=== PATIENT | male | born 1995 ===

== ENCOUNTER → 2023-09-26 12:47 | Outpatient (BNVA) | payer SELFPAY | PROVIDERS: PCP Nurse Practitioner Family; Visit Provider Physician Assistant Medical | DX: Z02.79 Encounter for issue of other medical certificate (principal) ==

== ENCOUNTER 2023-10-14 16:17 | Outpatient (AMB) | payer OTHER, SELFPAY ==
--- NOTE | 2023-10-14 16:19 | A.OFFPC_ITS ---
Vital Signs 10/14/23 16:20 Height 5 ft 9 in Weight 149 lb 4 oz BMI 22.0 BP 102/64 Blood Pressure Location Rt brachial Position Sitting Respiration 14 Pulse 77 Pulse Source Pulse Oximeter Temp 97.4 F Temp Source Temporal Artery Scan Pulse Oximetry (%) 97 Oxygen Delivery Method Room Air Intake Visit Reasons: hives on neck/arms Intake Note: would like referral to deburrer strip to get allergy test done. 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 Accompanied by: Self / Same As Patient Allergies No Known Allergies Allergy (Verified 10/14/23 16:26) Tobacco use date assessed: 10/14/23 Dental Screening Dental Screen Date: 10/14/23 Did you have a dental visit in the last 12 months?: No Did you have a dental problem in the last 6 months where you did not have access to dental care?: No Was dental information given to patient?: Patient has dentist [facility] Medical History (Updated 10/14/23 @ 16:30 by TAMARA Alexis) No pertinent past medical history Surgical History (Updated 10/14/23 @ 16:30 by TAMARA Alexis) No pertinent past surgical history Family History Mother Rheumatoid arthritis Fibromyalgia Maternal Grandfather Cancer Paternal Grandmother Schizophrenia Other Mental health disorder Social History Housing: Condominium Patient Tobacco Use Status: Former Tobacco user e-Cigarette/Vaping Use: Currently Using service: No Current occupational status: unemployed Cognitive needs: No Hearing needs: No Vision needs: Yes Physical exam (Primary Care) Vital Signs: Last Vital Signs Temp 97.4 F 10/14/23 16:20 Pulse 77 10/14/23 16:20 Resp 14 10/14/23 16:20 BP 102/64 10/14/23 16:20 Pulse Ox 97 10/14/23 16:20 Oxygen Delivery Method Room Air 10/14/23 16:20 BMI result Body Mass Index 22.0 Tobacco/Smoking Status: Tobacco use Status Tobacco use date assessed 10/14/23 10/14/23 16:33 Patient Tobacco Use Status Former Tobacco user 10/14/23 16:33 e-Cigarette/Vaping Use Currently Using 10/14/23 16:33 Coding
[2023-10-14 16:20] VITALS: BP 102/64; PULSE 77; RESP 14; TEMP 36.3; O2SAT 97; BMI 22.0
--- NOTE | 2023-10-14 16:35 | MHC.OFFWIV ---
Intake Vital Signs 10/14/23 16:20 Height 5 ft 9 in Weight 149 lb 4 oz BMI 22.0 BP 102/64 Blood Pressure Location Rt brachial Position Sitting Respiration 14 Pulse 77 Pulse Source Pulse Oximeter Temp 97.4 F Temp Source Temporal Artery Scan Pulse Oximetry (%) 97 Oxygen Delivery Method Room Air Intake Visit Reasons: hives on neck/arms Allergies No Known Allergies Allergy (Verified 10/14/23 16:38) Medication List - Last Reconciled 10/14/23 by Shania Mtz CNP cetirizine 10 mg PO DAILY HPI HPI Comments History of Present Illness Details 28-year-old male presents complaints of hives on the right side of his neck and upper back. 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 His symptoms completed has subsided after he quit the job about 2 weeks ago. He thinks the hives were associated to his work place. No current signs and symptoms. [facility] Medical History (Updated 10/14/23 @ 16:50 by Shania Mtz CNP) No pertinent past medical history Surgical History (Updated 10/14/23 @ 16:30 by TAMARA Alexis) No pertinent past surgical history Family History Mother Rheumatoid arthritis Fibromyalgia Maternal Grandfather Cancer Paternal Grandmother Schizophrenia Other Mental health disorder Review of Systems Const Details: Const Denies chills, Denies fatigue, Denies fever(s), Denies headache(s) and Denies weakness ENT Denies dizziness and Denies headache(s) Card Denies chest pain, Denies lightheadedness, Denies dyspnea and Denies other (Palpitations) Resp Denies cough, Denies dyspnea, Denies wheezing and Denies other ( shortness of breath) GI Denies abdominal pain, Denies melena, Denies hematochezia, Denies change in bowel habits, Denies dyspepsia and Denies nausea Denies hematuria and Denies dysuria Musc Denies abnormal gait, Denies myalgias, Denies arthralgias, Denies numbness and Denies tingling Skin/Breast Denies rash, Denies unusual bruising and Denies wounds Neuro Denies abnormal gait, Denies dizziness, Denies headache(s), Denies memory loss, Denies numbness, Denies Sensory deficit (Neuro), Denies tingling and Denies weakness Psych Denies anxiety, Denies depression, Denies memory loss Endo Denies cold intolerance, Denies fatigue, Denies heat intolerance, Denies polydipsia and Denies polyuria Aller/Immun Denies wheezing Physical Exam Vital Signs: Last Vital Signs Temp 97.4 F 10/14/23 16:20 Pulse 77 10/14/23 16:20 Resp 14 10/14/23 16:20 BP 102/64 10/14/23 16:20 Pulse Ox 97 10/14/23 16:20 Oxygen Delivery Method Room Air 10/14/23 16:20 BMI result Body Mass Index 22.0 Const Other: Const General: well developed; No acute distress Nutritional Appearance: well nourished Orientation/consciousness: patient oriented x3 HEENT Head: Yes normocephalic and Yes atraumatic Eyes General: appearance normal, both eyes and all related structures Pupils: Equal, round and reactive pupils present EOM: EOMs intact bilaterally Resp Effort & Inspection: normal respiratory effort Auscultation: clear to auscultation bilaterally Cardio Rate: regular rate Rhythm: regular rhythm Heart sounds: S1 normal heart sound present, S2 normal heart sound present, no gallops, no murmurs and no rubs Bruits: no abdominal aortic bruits and no carotid bruits Neuro General: patient oriented x3 and gait normal, no focal neuro deficit Cranial nerves: Yes Equal, round and reactive pupils present Psych Affect: normal affect Assessment & Plan Assessment & Plan (1) History of urticaria: Code(s): Z87.2 - Personal history of diseases of the skin and subcutaneous tissue Plan: Likely contact No acute signs or symptoms Instructed on treatment and prevention for hives, including avoiding allergens Encouraged to establish with a PCP to address his health care needs Follow-up with symptoms or concerns Verbalized understanding and agreed with treatment plan Coding Level of Care Code New Pt Level 3 (44961) Diagnoses History of urticaria Z87.2
== END 2023-10-14 16:57 | disposition home or self-care (01) ==
PROVIDERS: PCP Nurse Practitioner Family; Visit Provider Nurse Practitioner Family
DX: Z87.2 Personal history of diseases of the skin and subcutaneous tissue (principal)
CPT/HCPCS: 99203

== ENCOUNTER 2024-01-31 10:02 | Outpatient (AMB) | payer OTHER, SELFPAY ==
--- NOTE | 2024-01-31 10:15 | MHC.PC.OV ---
Vital Signs 01/31/24 10:32 Height 5 ft 9 in Weight 152 lb BMI 22.4 BP 90/62 Blood Pressure Location Rt brachial Position Sitting Respiration 16 Pulse 60 Pulse Source Pulse Oximeter Temp 97.9 F Temp Source Oral Pulse Oximetry (%) 96 Oxygen Delivery Method Room Air Intake Visit Reasons: PE Intake Note: patient here for new patient vist. 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 Relocated to [facility] in 2019 Last office visit/CPE: About 12 years Acute issue(s): Astigmatism -Corrected by prescription glasses He notes that he generally eats healthy and sleeps well. He also does routine physical exercise but not recently PMHx: No significant past medical history SurgHx: None FHx: Mom: Alcohol abuse, fibromyalgia, RA, RAMIREZ. MGF: Alcohol abuse, colon cancer, RAMIREZ. MGM: Schizophrenia. Dad: Alcohol abuse. PGM: Schizophrenia SocHx: Former smoker; quit a few months ago; smoked 2-3 cigarettes on/off for 15 years. Has been vaping nicotine daily since he quit smoking cigarette; Consumes edible cannabis occasionally [facility] . He will call to schedule his next eye exam Last tetanus vaccine was over 10 years ago [facility] Medical History (Updated 01/31/24 @ 11:25 by Shania Mtz CNP) Arthritis Allergic sinusitis No pertinent past medical history Surgical History (Updated 10/14/23 @ 16:30 by TAMARA Alexis) No pertinent past surgical history Family History (Updated 01/31/24 @ 10:52 by Melissa Lucero) Mother Rheumatoid arthritis Fibromyalgia Alcohol abuse Substance abuse Maternal Grandfather Cancer Alcohol abuse Substance abuse Asthma Colon cancer Paternal Grandmother Schizophrenia Father Alcohol abuse High blood pressure Maternal Grandmother Alcohol abuse High blood pressure Family/Other Asthma Sister BPD (bronchopulmonary dysplasia) Other Mental health disorder Social History Housing: [facility] Patient Tobacco Use Status: Former Tobacco user Cigarette Packs Per Day: 0 Cigarettes Per Day: 3 Years Smoked: on and off for 10 years e-Cigarette/Vaping Use: Currently Using Second Hand Smoke Exposure: No service: No Current occupational status: employed Current occupation: office services specialist Current occupational exposures/hazards: No Cognitive needs: No Hearing needs: No Vision needs: Yes Questionnaire PHQ-9 Over the last 2 weeks, how often have you been bothered by any of the following problems? 1. Little interest or pleasure in doing things: not at all 2. Feeling down, depressed, or hopeless: several days 3. Trouble falling or staying asleep, or sleeping too much: several days 4. Feeling tired or having little energy: several days 5. Poor appetite or overeating: several days 6. Feeling bad about yourself - or that you are a failure or have let yourself or your family down: not at all 7. Trouble concentrating on things, such as reading the newspaper or watching television: not at all 8. Moving or speaking so slowly that other people could have noticed. Or the opposite - being so fidgety or restless that you have been moving around a lot more than usual: not at all 9. Thoughts that you would be better off or of hurting yourself in some way: not at all Total score: 4 Depression Screening Interpretation: Negative Depression Screening Done: Yes 80010 - PHQ-9 Billing: Yes Source: Developed by Drs. Sergey Ross, Patrizia Bob, Josue Ritter and colleagues, with an educational ulysses from [employer]. Thrive Questionnaire Date Thrive assessed: 01/31/24 What is your living situation today?: I have a steady place to live Within the past 12 months, did the food you bought not last and you didn't have the money to get more?: Never true Within the past 12 months, did you worry whether your food would run out before you got money to buy more?: Never true Do you have trouble paying for medicines?: No Do you have trouble getting transportation to medical appointments?: No Do you have trouble taking care of your child, family member or friend?: No Do you have trouble with day-to-day activities such as bathing, preparing meals, shopping, managing finances, etc.?: No Are you currently unemployed and looking for a job?: No Are you interested in more education?: Yes Please select the resources that you would like help with: Education Currently or been in a relationship where the following occur: No concerns reported THRIVE Score: 0 AUDIT C Alcohol Use Questionnaire (AUDIT-C) 1. How often do you have a drink containing alcohol?: Monthly or less 2. How many drinks containing alcohol do you have on a typical day when you are drinking?: 1 or 2 3. How often do you have six or more drinks on one occasion?: Never Total Score: 1 Score Reviewed/Action Taken: Yes MARLON-7 AMB Questionnaire MARLON-7 Date MARLON - 7 assessed: 01/31/24 Feeling nervous, anxious, or on edge: 1 = Several days Not being able to stop or control worryin = Not at all Worrying too much about different things: 0 = Not at all Trouble relaxin = Several days Being so restless that it is hard to sit still: 1 = Several days Becoming easily annoyed or irritable: 1 = Several days Feeling afraid as if something awful might happen: 0 = Not at all Total MARLON-7 score (0-4 normal; 5-9 mild; 10-14 moderate; 15-21 severe): 4 Source: Developed by Drs. Sergey Ross, Patrizia Bob, Josue Ritter and colleagues, with an educational ulysses from [employer]. MARLON-7 Assessment Billing MARLON-7 Assessment Tool: MARLON-7 Assessment 90754 Review of Systems Const Details: Denies chills, Denies fatigue, Denies fever(s), Denies headache(s) and Denies weakness HEENT Denies change in vision, Denies dizziness, Denies headache(s), Denies hearing loss, Denies nasal congestion, Denies sinus pain, Denies sinus pressure and Denies sore throat Card Denies chest pain, Denies lightheadedness, Denies dyspnea and Denies other (palpitations) Resp Denies cough, Denies dyspnea and Denies wheezing GI Denies abdominal pain, Denies melena, Denies hematochezia, Denies change in bowel habits, Denies dyspepsia and Denies nausea Denies hematuria and Denies dysuria Musc Denies abnormal gait, Denies myalgias, Denies arthralgias, Denies numbness and Denies tingling Skin/Breast Denies rash, Denies unusual bruising and Denies wounds Neuro Denies abnormal gait, Denies dizziness, Denies headache(s), Denies memory loss, Denies numbness, Denies Sensory deficit (Neuro), Denies tingling and Denies weakness Psych Denies anxiety, Denies depression and Denies memory loss Endo Denies cold intolerance, Denies fatigue, Denies heat intolerance, Denies polydipsia and Denies polyuria Erlin/Lymph Denies easy bleeding and Denies easy bruising Aller/Immun Denies wheezing Physical exam (Primary Care) Vital Signs: Last Vital Signs Temp 97.9 F 01/31/24 10:32 Pulse 60 01/31/24 10:32 Resp 16 01/31/24 10:32 BP 90/62 01/31/24 10:32 Pulse Ox 96 01/31/24 10:32 Oxygen Delivery Method Room Air 01/31/24 10:32 BMI result Body Mass Index 22.4 Tobacco/Smoking Status: Tobacco use Status Tobacco use date assessed 01/31/24 01/31/24 10:24 Patient Tobacco Use Status Former Tobacco user 01/31/24 10:24 e-Cigarette/Vaping Use Currently Using 01/31/24 10:24 PHQ-9: PHQ-9 Score PHQ-9: Total score 4 01/31/24 11:14 Depression Screening Interpretation: Negative Thrive Assessment: Date of Thrive Assessment Date Thrive assessed 01/31/24 01/31/24 10:40 Currently or been in a relationship where the following occur: No concerns reported Const Other: General: no acute distress, well developed, alert and awake Nutritional Appearance: well nourished Orientation/consciousness: patient oriented x3 HENMT Head: Yes normocephalic and Yes atraumatic Ears: hearing grossly normal bilaterally and TM's normal bilaterally General nose exam: Normal external nose present and Normal nares present Mouth: Normal oral and palatal mucosa present and moist mucous membranes Teeth and gingiva: dentition normal Throat: Yes oropharynx normal Eyes Pupils: Equal, round and reactive pupils present and Pupil accommodation reflex normal EOM: EOMs intact bilaterally Neck Neck: Yes normal visual inspection, Yes no lymphadenopathy and Yes trachea midline Thyroid: Thyroid normal Carotids: no bruits Lymphatic: no lymphadenopathy noted Chest Chest palpation & inspection: normal inspection of the chest Resp Effort & Inspection: normal respiratory effort Auscultation: clear to auscultation bilaterally Cardio Rate: regular rate Rhythm: regular rhythm Heart sounds: S1 normal heart sound present, S2 normal heart sound present, no gallops, no murmurs and no rubs Bruits: no abdominal aortic bruits and no carotid bruits GI Palpation (GI): No Abdominal aortic bruit present, Soft to palpation, nontender, No hepatosplenomegaly present and No Rebound tenderness present Auscultation: normal bowel sounds General: Yes no CVA tenderness Back/Spine/Pelvis Back: no CVA tenderness Cervical Spine: cervical ROM normal and No Cervical spine tenderness Thoracic/Lumbar Spine: thoraco-lumbar ROM normal, No pain with thoraco-lumbar ROM, No thoracic spinal tenderness and No lumbar spinal tenderness Skin General: warm and dry. Normal skin color. Normal skin turgor Lesions: no lesions Rashes: no rashes Trauma: no lacerations or abrasions Wounds: no wounds Nails: normal Neuro General: patient oriented x3, gait normal and CN's II-XI intact bilaterally Cranial nerves: Yes Equal, round and reactive pupils present Cognition (Neuro): normal cognition Gait exam (Neuro): Normal gait present Motor exam (neuro): 5/5 motor strength present throughout Sensory Exam: No Sensory deficit (Neuro) Deep tendon reflexes (DTR's): Right patellar reflex intensity grade: 2+ and Left patellar reflex intensity grade: 2+ Extrem General: Yes normal to inspection, No edema and No calf tenderness Psych Appearance: grossly normal Affect: normal affect Attitude: cooperative Thought process: Normal thought process present Immunizations Boostrix Tdap 2.5 Lf unit-8 mcg-5 Lf/0.5 mL intramuscular syringe Performing Provider: Shania Mtz CNP Performing Location: [facility] Administered by: Myriam Rizzo RN on 01/31/24 11:15 Dose Route Admin Location Dispensed Lot Number Expiration Date NDC Dramatic Director 0.5 mL IM Left Deltoid 0.5 mL [id number] 02/28/26 [id number] [employer] VIS Given Date VIS Provided VIS Publication Date 01/31/24 Single Vaccine 20 Eligibility Eligibility Date Funding Source Not [facility] Eligible 01/31/24 Private Assessment and Plan Assessment & Plan (1) Normal physical examination, routine: Code(s): Z00.00 - Encounter for general adult medical examination without abnormal findings Plan: No significant physical restrictions or limitations noted Healthy diet and routine exercise encouraged Advised to get lab work done and follow-up for telehealth visit in 2-3 weeks for labs review Return with symptoms or concerns Verbalized understanding and agreed with the plan (2) Astigmatism: Code(s): H52.209 - Unspecified astigmatism, unspecified eye Qualifiers: Laterality: unspecified laterality Plan: Corrected by prescription glasses Followed by ophthalmology (3) Engages in vaping: Code(s): Z72.89 - Other problems related to lifestyle Plan: He has been vaping nicotine daily since he quit smoking a few months ago Instructed on the health risks and complications of vaping nicotine and encouraged to quit. He may notify his PCP if he needs medication treatment for nicotine use. He verbalized understanding and agreed with treatment plan (4) Laboratory tests ordered as part of a complete physical exam (CPE): Code(s): Z00.00 - Encounter for general adult medical examination without abnormal findings Plan: Fasting labs ordered as part of a complete physical exam. Advised to fast for at least 10 hours before getting labs drawn. May drink water Verbalized understanding and agreed with treatment plan. Orders: Orders Lipid Panel Today Z00.00 - Encounter for general adult medical examination without abnormal findings TSH reflex Free T4 Today Z00.00 - Encounter for general adult medical examination without abnormal findings UA CC w/rflx Micro + Cult Today Z00.00 - Encounter for general adult medical examination without abnormal findings TDaP Immunization Today Z23 - Encounter for immunization Complete Blood Count Auto Diff Today Z00.00 - Encounter for general adult medical examination without abnormal findings Comprehensive Rewey. Panel Fast Today Z00.00 - Encounter for general adult medical examination without abnormal findings Coding Level of Care Code Est Pt Prev Care [id number]) Diagnoses Normal physical examination, routine Z00.00 Astigmatism H52.209 Laterality: unspecified laterality Engages in vaping Z72.89 Laboratory tests ordered as part of a complete physical exam (CPE) Z00.00 Additional Codes MARLON-7 Assessment Billing - MARLON-7 Assessment Tool: MARLON-7 Assessment [id number] ([id number])
[2024-01-31 10:32] VITALS: BP 90/62; PULSE 60; RESP 16; TEMP 36.6; O2SAT 96; BMI 22.4
== END 2024-01-31 11:14 | disposition home or self-care (01) ==
PROVIDERS: PCP Nurse Practitioner Family; Visit Provider Nurse Practitioner Family
DX: Z00.00 Encounter for general adult medical examination without abnormal findings (principal); H52.209 Unspecified astigmatism, unspecified eye; Z72.89 Other problems related to lifestyle; Z23 Encounter for immunization
CPT/HCPCS: 90471; 90715; 99395

== ENCOUNTER 2024-02-04 12:13 | Outpatient (REF) | payer OTHER, SELFPAY ==
[2024-02-04 13:37] LABS: MANUAL DIFF FLAG NO
[2024-02-04 13:40] LABS: Basophils Percent Auto 0.6 % (0-2); Eosinophils Absolute Auto 0.1 X10*3/uL (0.0-0.4); Eosinophils Percent Auto 1.7 % (0-4); Hematocrit 47.5 % (42.0-52.0); Hemoglobin 15.7 g/dl (14.0-18.0); Imm Gran Abs Auto 0.01 X10*3/uL (0.00-0.03); Imm Gran Pct Auto 0.2 % (0.0-0.4); Lymphocytes Percent Auto 31.6 % (20-40); Mean Corpuscular HGB Conc 33.1 g/dl (31.0-36.0); Mean Corpuscular Volume 87.6 fL (80.0-98.0); Mean Platelet Volume 11.4 fL (9.4-12.4); Monocytes Absolute Auto 0.5 X10*3/uL (0.1-1.2); Monocytes Percent Auto 7.6 % (2-11); Neutrophils Absolute Auto 3.8 x10*3/uL (2.0-8.3); Neutrophils Percent Auto 58.3 % (45-73); Platelet Count 198 X10*3/uL (160-400); Red Blood Count 5.42 X10*6/uL (4.60-5.80); Red Cell Distribution Width 11.9 % (11.0-16.0); White Blood Count 6.5 X10*3/uL (4.8-10.8)
[2024-02-04 13:43] LABS: Appearance Urine Clear; Color Urine Yellow; Glucose Urine UA Negative (Negative); Leukocyte Esterase Urine Negative (Negative); Nitrite Urine Negative (Negative); Urine Blood Negative (Negative); Urine Ketones Negative (Negative); Urine Protein Negative (Neg-Trace)
[2024-02-04 14:10] LABS: Alanine Aminotransferase 32 U/L (0-40); Albumin Level 4.2 g/dL (3.5-5.0); Alkaline Phosphatase 52 U/L (39-117); Anion Gap 12 (12-20); Aspartate Amino Transferase 23 U/L (5-37); Bilirubin Total 0.7 mg/dL (0.0-1.0); Blood Urea Nitrogen 10 mg/dL (9-16); Calcium 9.6 mg/dL (8.4-10.2); Carbon Dioxide 30 mmol/L (22-29); Chloride 103 mmol/L (96-108); Cholesterol 187 mg/dL (<200); Estimated Glomerular Filt Rate > 60; Glucose Fasting 86 mg/dL (60-99); HDL Cholesterol 43 mg/dL (>40); LDL Cholesterol Calculated 124 mg/dL (<100); Potassium 4.1 mmol/L (3.3-5.1); Sodium 141 mmol/L (135-145); Total Protein 7.4 g/dL (6.5-8.0); Triglycerides 101 mg/dL (<150)
[2024-02-04 14:24] LABS: TSH reflex Free T4 1.16 uIU/mL (0.32-4.0)
== END 2024-02-04 12:14 | disposition home or self-care (01) ==
LOC: HO.HMGCLDS 12:13
PROVIDERS: PCP Nurse Practitioner Family; Visit Provider Nurse Practitioner Family
DX: Z00.00 Encounter for general adult medical examination without abnormal findings (principal)
CPT/HCPCS: 36415; 80053; 80061; 81003; 84443; 85025

== ENCOUNTER 2024-12-31 10:56 | Outpatient (AMB) | payer SELFPAY ==
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
[2024-12-31 11:18] VITALS: BP 98/64; PULSE 71; RESP 16; TEMP 36.5; O2SAT 98; BMI 20.7
== END 2024-12-31 12:18 | disposition home or self-care (01) ==
LOC: HO.HMCFM 10:57
PROVIDERS: PCP Nurse Practitioner Family; Visit Provider Nurse Practitioner Family
DX: F41.9 Anxiety disorder, unspecified (principal); F32.A Depression, unspecified

== ENCOUNTER → 2024-12-31 10:56 | Outpatient (BNVA) | payer SELFPAY | PROVIDERS: PCP Nurse Practitioner Family; Visit Provider Nurse Practitioner Family | DX: R45.4 Irritability and anger (principal); F32.A Depression, unspecified; F41.9 Anxiety disorder, unspecified | CPT/HCPCS: 96127; 99212 ==